=== PATIENT | female | born 1950 | race Caucasian/White ===

== ENCOUNTER → 2018-02-17 | Outpatient (CLI) | payer MEDICARE ==
[~2018-02-17] MED LIST: BP MED PO; CLONAZEPAM0.5 MG PO; LISINOPRIL-HCT1 EAC2 PO; MELOXICAM15 MG PO; OXYBUTYNIN CHLOR5 MG PO; PANTOPRAZOLE SO40 MG PO; PREDNISONE; PROBIOTIC DIGE1 EACH PO; ULTRAM50 MG PO; [UNRECOGNIZED DRUG - OTHER]; [UNRECOGNIZED DRUG - OTHER] PO
--- NOTE | 2018-02-17 15:06 | Diagnostic Imaging Report ---
Exam: Bone mineral density study. History: MENOPAUSE, reported history of prior fracture of spine, hips or forearm and loss of height Comparison: None Discussion: Evaluation of the left hip and lumbar spine was performed. The study is technically adequate. The patient's fracture risk is compared to an age-matched control. The patient denies prior surgery/fracture of the spine, hips or forearm. Left hip femoral neck bone mineral density: 0.8 g/cm2, T-score is -0.6, Z-score is 1. Left hip total bone mineral density: 0.9 g/cm2, T-score is -0.5, Z-score is 0.9. Lumbar spine total bone mineral density: 1.3 g/cm2, T-score is 1.9, Z-score is 3.9. Impression: Bone mineralization by WHO Classification is normal, the fracture risk is not increased. Signed by: Dr. Arnel Yarbrough D.O., M.M.M. on 02/17/2018 3:03 PM
--- NOTE | 2018-02-21 08:37 | Diagnostic Imaging Report ---
#[id number] - MGSCRBIL #BILATERAL DIGITAL SCREENING MAMMOGRAM WITH CAD: 02/17/2018 CLINICAL: Routine screening. Comparison is made to exam dated: 02/04/2017 mammogram - [facility] [place]. Current study contains 5 films. The tissue of both breasts is predominantly fatty. Current study was also evaluated with a Computer Aided Detection (CAD) system. There are benign scattered calcifications in both breasts. There also are benign intramammary nodes in the right breast. No significant masses, calcifications, or other findings are seen in either breast. There has been no significant interval change. IMPRESSION: BENIGN There is no mammographic evidence of malignancy. A 1 year screening mammogram is recommended. The patient will be notified by letter of the results. Marcial malone/bolivar:02/18/2018 15:12:02 Work Order Detailer: Juanita HEARD(R)(Araseli), [facility] [place] letter sent: Compared to Prior B9 Mammogram BI-RADS: 2 Benign
== END ==
LOC: MAMMO 13:50
DX: Z12.31 Encounter for screening mammogram for malignant neoplasm of breast (principal); Z78.0 Asymptomatic menopausal state
CPT/HCPCS: 77067; 77080

== ENCOUNTER → 2018-03-14 | Outpatient (CLI) | payer MEDICARE | LOC: CARD 13:56 | DX: I73.9 Peripheral vascular disease, unspecified (principal) | CPT/HCPCS: 93925 ==

== ENCOUNTER → 2020-02-23 | Outpatient (CLI) | payer MEDICARE | LOC: MAMMO 12:37 | DX: Z12.31 Encounter for screening mammogram for malignant neoplasm of breast (principal); M89.9 Disorder of bone, unspecified | CPT/HCPCS: 77067; 77080 ==

== ENCOUNTER 2020-11-07 17:58 | Emergency (ER) | payer MEDICARE, OTHER ==
[~2020-11-07] VITALS: Ht 165.1 cm; Wt 108.9 kg
[2020-11-07] MEDS ORDERED: LIDOCAINE 1% W/EPINEPHRINE 20 ML VIAL ONE (18:37)
[2020-11-07] MEDS ORDERED: TRANEXAMIC ACID 1,000 MG/10 ML ML ONE (18:37)
== END 2020-11-07 19:15 | disposition home or self-care (01) ==
LOC: ER 19:10
DX: S91.012A Laceration without foreign body, left ankle, initial encounter (principal); W22.8XXA Striking against or struck by other objects, initial encounter; Y92.89 Other specified places as the place of occurrence of the external cause; Z95.810 Presence of automatic (implantable) cardiac defibrillator
CPT/HCPCS: 99283

== ENCOUNTER → 2021-02-10 | Outpatient (CLI) | payer MEDICARE | LOC: US 11:56 | PROVIDERS: ATTEND Internal Medicine Nephrology | DX: N18.30 Chronic kidney disease, stage 3 unspecified (principal) | CPT/HCPCS: 76770; 76857 ==

== ENCOUNTER 2021-10-31 14:08 | Inpatient (IN) | payer MEDICARE ==
[~2021-10-31] VITALS: Ht 165.1 cm; Wt 108.9 kg
[2021-10-31] MEDS ORDERED: SODIUM CHLORIDE 0.9% 1000ML 1,000 ML IV STA (14:48)
[2021-10-31 14:59] LABS: BASOPHILS # (AUTO) 0.1 (0.0-0.1); BASOPHILS % 0.2 % (0.0-1.0); HEMATOCRIT 43.1 % (34.2-44.1); HEMOGLOBIN 14.8 g/dL (12.0-16.0); LYMPHOCYTES # (AUTO) 1.2 (1.0-3.2); LYMPHOCYTES % 4.1 % (18.0-39.1); MEAN CORPUSCULAR HEMOGLOBIN 31.2 pg (28-32); MEAN CORPUSCULAR HGB CONC 34.3 g/dL (31-35); MEAN CORPUSCULAR VOLUME 90.9 fL (81-99); MONOCYTES # (AUTO) 1.8 (0.2-0.8); MONOCYTES % 6.4 % (4.4-11.3); NEUTROPHILS # (AUTO) 25.2 (2.1-6.9); NEUTROPHILS % 88.5 % (38.7-80.0); PLATELET COUNT 288 x10e3/uL (140-360); RED BLOOD COUNT 4.74 x10e6/uL (3.6-5.1); RED CELL DISTRIBUTION WIDTH 12.7 % (11.7-14.4)
[2021-10-31 15:09] LABS: ALBUMIN/GLOBULIN RATIO 0.9 (0.8-2.0); ANION GAP 18.5 mmol/L (8-16); CALCIUM 9.4 mg/dL (8.4-10.2); CREATININE, SERUM 1.09 mg/dL (0.57-1.11); POTASSIUM 3.5 mmol/L (3.5-5.1)
[2021-10-31] MEDS: ONDANSETRON HCL INJ 2MG/ML 2ML 2 MG/ML VIAL IV PRN ×2 (15:20→20:00)
[2021-10-31] MEDS ORDERED: IOPAMIDOL 370 MG/ML 100 ML INFUS..BTL INJ ONE (15:35)
[2021-10-31] MEDS ORDERED: FENTANYL CITRATE/PF 100MCG/2 ML INJ IV ONE (15:45)
[2021-10-31 16:21] LABS: CLARITY,URINE SL CLOUDY (CLEAR); COLOR,URINE STRAW (YELLOW); KETONES,URINE NEGATIVE (NEGATIVE); LEUKOCYTE ESTERASE ,URINE NEGATIVE (NEGATIVE); NITRITE,URINE NEGATIVE (NEGATIVE); PROTEIN,URINE DIPSTICK NEGATIVE (NEGATIVE); URINE UROBILINOGEN 1 mg/dL (0.2 - 1)
[2021-10-31 16:35] LABS: BACTERIA,URINE RARE /HPF; EPITHELIAL CELLS,URINE FEW /LPF
[2021-10-31] MEDS ORDERED: SODIUM CHLORIDE 0.9% 1000ML 1,000 ML IV SCH (16:45)
[2021-10-31] MEDS ORDERED: ONDANSETRON HCL INJ 2MG/ML 2ML 2 MG/ML VIAL IV PRN (16:45)
[2021-10-31] MEDS ORDERED: Morphine 4mg INJECTION 4 MG/ML INJ IV PRN (16:45)
[2021-10-31] MEDS ORDERED: LACTATED RINGER'S 1,000 ML INJ ONE (17:00)
[2021-10-31] MEDS ORDERED: METRONIDAZOLE 500MG/NS 100ML 100 ML IV SCH (17:00)
[2021-10-31] MEDS ORDERED: LACTATED RINGER'S 1,000 ML INJ SCH (17:00)
[2021-10-31] MEDS: HYDROMORPHONE 1MG/1ML INJ IV PRN ×3 (17:58→21:10)
[2021-10-31] MEDS: SODIUM CHLORIDE 0.9% 1000ML 1,000 ML IV SCH (18:40)
[2021-10-31 20:30] VITALS: BP 163/71
[2021-10-31 21:00] VITALS: BP 163/71
[2021-10-31] MEDS ORDERED: HYDROCHLOROTHIA25 MG PO (21:25)
[2021-10-31] MEDS ORDERED: METOPROLOL SUCC25 MG PO (21:25)
[2021-10-31] MEDS ORDERED: LISINOPRIL10 MG PO (21:25)
[2021-10-31] MEDS ORDERED: SODIUM CHLORIDE 0.9% 1000ML 1,000 ML IV ONE ×2 (21:30)
[2021-11-01] VITALS (8 sets, daily range): BP systolic 138–169; BP diastolic 61–84
[2021-11-01] MEDS ORDERED: ACETAMINOPHEN 1000 MG/100 ML IV PRN
[2021-11-01] MEDS: METRONIDAZOLE 500MG/NS 100ML 100 ML IV SCH ×4 (00:13→16:31)
[2021-11-01] MEDS: SODIUM CHLORIDE 0.9% 1000ML 1,000 ML IV SCH (00:13)
[2021-11-01] MEDS: LACTATED RINGER'S 1,000 ML INJ SCH ×5 (00:36→21:17)
[2021-11-01] MEDS: HYDROMORPHONE 1MG/1ML INJ IV PRN ×6 (01:39→21:18)
[2021-11-01] MEDS: ONDANSETRON HCL INJ 2MG/ML 2ML 2 MG/ML VIAL IV PRN ×5 (01:39→21:17)
[2021-11-01 05:52] LABS: BASOPHILS # (AUTO) 0.1 (0.0-0.1); BASOPHILS % 0.3 % (0.0-1.0); EOSINOPHILS % 0.1 % (0.0-6.0); HEMATOCRIT 37.1 % (34.2-44.1); HEMOGLOBIN 12.5 g/dL (12.0-16.0); LYMPHOCYTES # (AUTO) 1.6 (1.0-3.2); LYMPHOCYTES % 8.2 % (18.0-39.1); MEAN CORPUSCULAR HEMOGLOBIN 30.5 pg (28-32); MEAN CORPUSCULAR HGB CONC 33.7 g/dL (31-35); MEAN CORPUSCULAR VOLUME 90.5 fL (81-99); MONOCYTES # (AUTO) 1.2 (0.2-0.8); MONOCYTES % 6.3 % (4.4-11.3); NEUTROPHILS % 84.3 % (38.7-80.0); PLATELET COUNT 194 x10e3/uL (140-360); RED CELL DISTRIBUTION WIDTH 13.2 % (11.7-14.4)
[2021-11-01 06:27] LABS: ALBUMIN/GLOBULIN RATIO 0.9 (0.8-2.0); ANION GAP 13.4 mmol/L (8-16); CALCIUM 7.5 mg/dL (8.4-10.2); CREATININE, SERUM 0.88 mg/dL (0.57-1.11); POTASSIUM 4.4 mmol/L (3.5-5.1)
[2021-11-01 06:59] LABS: AMYLASE 1259 U/L (25-125)
[2021-11-01 07:33] LABS: LIPASE 1863 U/L (8-78)
[2021-11-01] MEDS ORDERED: DIPHENHYDRAMINE HCL INJ 50 MG/ML VIAL IV ONE ×2 (17:00→21:45)
[2021-11-01] MEDS ORDERED: MAGNESIUM HYDROXIDE 30 ML UDC PO ONE (17:30)
[2021-11-01] MEDS ORDERED: BISACODYL 5 MG TAB EC PO ONE (17:30)
[2021-11-01] MEDS ORDERED: METHYLPREDNISOLONE SOD SUCC 125 MG/2ML VIAL IV ONE (21:45)
[2021-11-02] VITALS (7 sets, daily range): BP systolic 143–171; BP diastolic 66–88
[2021-11-02] MEDS: METRONIDAZOLE 500MG/NS 100ML 100 ML IV SCH ×5 (00:45→23:30)
[2021-11-02] MEDS: LACTATED RINGER'S 1,000 ML INJ SCH ×3 (02:42→16:54)
[2021-11-02 06:25] LABS: BASOPHILS # (AUTO) 0.1 (0.0-0.1); BASOPHILS % 0.3 % (0.0-1.0); HEMATOCRIT 40.2 % (34.2-44.1); HEMOGLOBIN 13.9 g/dL (12.0-16.0); LYMPHOCYTES # (AUTO) 0.7 (1.0-3.2); LYMPHOCYTES % 3.1 % (18.0-39.1); MEAN CORPUSCULAR HEMOGLOBIN 31.2 pg (28-32); MEAN CORPUSCULAR HGB CONC 34.6 g/dL (31-35); MEAN CORPUSCULAR VOLUME 90.1 fL (81-99); MONOCYTES # (AUTO) 0.5 (0.2-0.8); MONOCYTES % 1.9 % (4.4-11.3); NEUTROPHILS # (AUTO) 22.6 (2.1-6.9); NEUTROPHILS % 93.5 % (38.7-80.0); PLATELET COUNT 175 x10e3/uL (140-360); RED BLOOD COUNT 4.46 x10e6/uL (3.6-5.1); RED CELL DISTRIBUTION WIDTH 13.4 % (11.7-14.4)
[2021-11-02 06:53] LABS: ALBUMIN 2.7 g/dL (3.5-5.0); ALBUMIN/GLOBULIN RATIO 0.7 (0.8-2.0); ANION GAP 12.2 mmol/L (8-16); CALCIUM 7.9 mg/dL (8.4-10.2); CREATININE, SERUM 0.8 mg/dL (0.57-1.11); POTASSIUM 4.2 mmol/L (3.5-5.1)
[2021-11-02] MEDS ORDERED: MAGNESIUM HYDROXIDE 30 ML UDC PO ONE (07:30)
[2021-11-02] MEDS ORDERED: BISACODYL 5 MG TAB EC PO ONE (07:30)
[2021-11-02] MEDS: CIPROFLOXACIN 400 MG/D5W 200ML 200 ML IV SCH ×3 (08:00→22:15)
[2021-11-02 08:12] LABS: NEUTROPHILS % (MANUAL) 100 % (40-74)
[2021-11-02 08:14] LABS: PLATELET ESTIMATE ADEQUATE; PLATELET MORPHOLOGY COMMENT NORMAL; RBC MORPHOLOGY COMMENT NORMAL
[2021-11-02] MEDS ORDERED: METOPROLOL SUCCINATE 25 MG TAB XL PO SCH (09:00)
[2021-11-02] MEDS ORDERED: LISINOPRIL 10 MG TAB PO SCH (09:00)
[2021-11-02] MEDS: PANTOPRAZOLE SOD 40 MG TABEC PO SCH (09:09)
[2021-11-02] MEDS: OXYBUTYNIN CHLORIDE 5 MG TAB PO SCH ×3 (09:09→21:00)
[2021-11-02] MEDS ORDERED: BISACODYL 5 MG TAB EC PO PRN (17:00)
[2021-11-02] MEDS ORDERED: MAGNESIUM HYDROXIDE 30 ML UDC PO PRN (17:00)
[2021-11-02] MEDS: DIPHENHYDRAMINE HCL INJ 50 MG/ML VIAL IV PRN (19:40)
[2021-11-02] MEDS ORDERED: METHYLPREDNISOLONE SOD SUCC 125 MG/2ML VIAL IV ONE (22:00)
[2021-11-03] VITALS (9 sets, daily range): BP systolic 145–173; BP diastolic 66–93
[2021-11-03] MEDS ORDERED: LASIX10 MG/ML PO (00:14)
[2021-11-03] MEDS ORDERED: CLONIDINE HCL0.1 MG PO (00:14)
[2021-11-03] MEDS ORDERED: LOSARTAN POTASS25 MG PO (00:14)
[2021-11-03] MEDS ORDERED: MELATONIN 5 MG TABLET PO PRN (01:00)
[2021-11-03] MEDS ORDERED: TRAMADOL HCL 50 MG TAB PO PRN (01:00)
[2021-11-03] MEDS: HYDROMORPHONE 1MG/1ML INJ IV PRN (01:25)
[2021-11-03] MEDS: DIPHENHYDRAMINE HCL INJ 50 MG/ML VIAL IV PRN (01:45)
[2021-11-03 05:53] LABS: BASOPHILS # (AUTO) 0.1 (0.0-0.1); BASOPHILS % 0.3 % (0.0-1.0); HEMATOCRIT 37.4 % (34.2-44.1); HEMOGLOBIN 12.9 g/dL (12.0-16.0); LYMPHOCYTES # (AUTO) 0.8 (1.0-3.2); MEAN CORPUSCULAR HEMOGLOBIN 30.9 pg (28-32); MEAN CORPUSCULAR HGB CONC 34.5 g/dL (31-35); MEAN CORPUSCULAR VOLUME 89.7 fL (81-99); MONOCYTES # (AUTO) 0.5 (0.2-0.8); MONOCYTES % 2.6 % (4.4-11.3); NEUTROPHILS # (AUTO) 18.3 (2.1-6.9); NEUTROPHILS % 91.7 % (38.7-80.0); PLATELET COUNT 219 x10e3/uL (140-360); RED BLOOD COUNT 4.17 x10e6/uL (3.6-5.1); RED CELL DISTRIBUTION WIDTH 13.2 % (11.7-14.4)
[2021-11-03] MEDS: METRONIDAZOLE 500MG/NS 100ML 100 ML IV SCH ×2 (06:00→13:47)
[2021-11-03 06:15] LABS: ALBUMIN 2.8 g/dL (3.5-5.0); ALBUMIN/GLOBULIN RATIO 0.8 (0.8-2.0); ANION GAP 12.9 mmol/L (8-16); CALCIUM 7.8 mg/dL (8.4-10.2); CREATININE, SERUM 0.84 mg/dL (0.57-1.11); POTASSIUM 3.9 mmol/L (3.5-5.1)
[2021-11-03] MEDS: LACTATED RINGER'S 1,000 ML INJ SCH ×2 (06:41→20:10)
[2021-11-03] MEDS: OLMESARTAN 20 MG TAB PO SCH (09:16)
[2021-11-03] MEDS: PANTOPRAZOLE SOD 40 MG TABEC PO SCH (09:17)
[2021-11-03] MEDS: CIPROFLOXACIN 400 MG/D5W 200ML 200 ML IV SCH ×2 (09:17→20:56)
[2021-11-04] VITALS: BP 140/82
[2021-11-04] MEDS: METRONIDAZOLE 500MG/NS 100ML 100 ML IV SCH ×2 (00:04→06:18)
[2021-11-04 04:00] VITALS: BP 160/86
[2021-11-04 05:01] LABS: BASOPHILS % 0.2 % (0.0-1.0); HEMATOCRIT 38.6 % (34.2-44.1); LYMPHOCYTES # (AUTO) 1.6 (1.0-3.2); LYMPHOCYTES % 7.8 % (18.0-39.1); MEAN CORPUSCULAR HEMOGLOBIN 30.5 pg (28-32); MEAN CORPUSCULAR HGB CONC 33.7 g/dL (31-35); MEAN CORPUSCULAR VOLUME 90.6 fL (81-99); MONOCYTES # (AUTO) 1.8 (0.2-0.8); MONOCYTES % 8.9 % (4.4-11.3); NEUTROPHILS # (AUTO) 16.9 (2.1-6.9); NEUTROPHILS % 81.9 % (38.7-80.0); PLATELET COUNT 236 x10e3/uL (140-360); RED BLOOD COUNT 4.26 x10e6/uL (3.6-5.1); RED CELL DISTRIBUTION WIDTH 13.2 % (11.7-14.4)
[2021-11-04 05:20] LABS: ALBUMIN/GLOBULIN RATIO 0.9 (0.8-2.0); ANION GAP 11.9 mmol/L (8-16); CALCIUM 8.1 mg/dL (8.4-10.2); CREATININE, SERUM 0.86 mg/dL (0.57-1.11); POTASSIUM 3.9 mmol/L (3.5-5.1)
[2021-11-04 08:06] VITALS: BP 166/85
[2021-11-04] MEDS: OLMESARTAN 20 MG TAB PO SCH (08:17)
[2021-11-04] MEDS: PANTOPRAZOLE SOD 40 MG TABEC PO SCH (08:17)
[2021-11-04] MEDS: CIPROFLOXACIN 400 MG/D5W 200ML 200 ML IV SCH (08:17)
[2021-11-04] MEDS ORDERED: CIPRO500 MG PO (10:34)
[2021-11-04] MEDS ORDERED: FLAGYL375 MG PO (10:34)
== END 2021-11-04 11:15 | disposition home or self-care (01) | DRG 871 ==
LOC: ER 14:11 → ERHOLD 20:13 → MED/SURG2 20:14
PROVIDERS: ADMIT Internal Medicine
DX: A41.9 Sepsis, unspecified organism (principal); K85.10 Biliary acute pancreatitis without necrosis or infection; K85.90 Acute pancreatitis without necrosis or infection, unspecified; Z68.41 Body mass index [BMI] 40.0-44.9, adult; K76.0 Fatty (change of) liver, not elsewhere classified; F41.9 Anxiety disorder, unspecified; Z87.11 Personal history of peptic ulcer disease; R22.0 Localized swelling, mass and lump, head; T36.1X5A Adverse effect of cephalosporins and other beta-lactam antibiotics, initial encounter; K52.9 Noninfective gastroenteritis and colitis, unspecified; R63.4 Abnormal weight loss; Z20.822 Contact with and (suspected) exposure to COVID-19; I89.0 Lymphedema, not elsewhere classified; N32.81 Overactive bladder; M17.11 Unilateral primary osteoarthritis, right knee; I11.9 Hypertensive heart disease without heart failure; E66.01 Morbid (severe) obesity due to excess calories; E27.8 Other specified disorders of adrenal gland; Z86.16 Personal history of COVID-19; Z79.899 Other long term (current) drug therapy; Z95.810 Presence of automatic (implantable) cardiac defibrillator
CPT/HCPCS: 0223U; 36415; 71045; 74177; 76705; 80053; 81001; 82150; 83605; 83690; 84478; 84484; 85025; 86301; 93005; 94799; 96361; 99284; J0696; J1170; J1200; J2270; J2405; J2930; J3010; J7030; J7121; Q9967

== ENCOUNTER → 2021-12-02 | Outpatient (CLI) | payer MEDICARE ==
[~2021-12-02] MED LIST changes: +CIPRO500 MG PO; +CLONIDINE HCL0.1 MG PO; +FENTANYL CITRATE/PF 100MCG/2 ML INJ ONE; +FLAGYL375 MG PO; +HYDROCHLOROTHIA25 MG PO; +LABETALOL HCL 20 ML ONE; +LASIX10 MG/ML PO; +LISINOPRIL10 MG PO; +LOSARTAN POTASS25 MG PO; +METOPROLOL SUCC25 MG PO; +MIDAZOLAM HCL 2 MG/2 ML VIAL ONE; +SODIUM CHLORIDE 0.9% 250ML 250 ML ONE
[2021-12-02 12:09] LABS: HEMOGLOBIN 12.3 g/dL (12.0-16.0)
[2021-12-02 12:16] LABS: INR 0.88; PARTIAL THROMBOPLASTIN TIME 27.5 seconds (23.8-35.5); PROTHROMBIN TIME 12.8 seconds (11.9-14.5)
== END ==
LOC: CT 11:03
DX: E27.8 Other specified disorders of adrenal gland (principal); Z20.822 Contact with and (suspected) exposure to COVID-19
CPT/HCPCS: 0223U; 36415 ×2; 71045; 77012; 85014; 85049; 85610; 85730; 88304; J2250; J3010; J3490; J7050; 99152; 99153

== ENCOUNTER → 2022-07-08 | Outpatient (CLI) | payer MEDICARE ==
[~2022-07-08] MED LIST changes: -FENTANYL CITRATE/PF 100MCG/2 ML INJ ONE; -LABETALOL HCL 20 ML ONE; -MIDAZOLAM HCL 2 MG/2 ML VIAL ONE; -SODIUM CHLORIDE 0.9% 250ML 250 ML ONE
== END ==
LOC: RAD 11:47
PROVIDERS: ATTEND Internal Medicine
DX: M25.562 Pain in left knee (principal); M25.561 Pain in right knee

== ENCOUNTER 2024-01-19 15:02 | Inpatient (IN) | payer MEDICARE ==
[~2024-01-19] VITALS: Ht 165.1 cm; Wt 116.7 kg
[2024-01-19 15:05] VITALS: TEMP 98
[2024-01-19] MEDS ORDERED: SODIUM CHLORIDE FLUSH 10 ML SYR IV PRN (15:45)
[2024-01-19 17:10] LABS: BASOPHILS % 0.3 % (0.0-1.0); EOSINOPHILS # (AUTO) 0.1 (0.0-0.4); EOSINOPHILS % 0.3 % (0.0-6.0); HEMATOCRIT 40.7 % (34.2-44.1); HEMOGLOBIN 13.5 g/dL (12.0-16.0); LYMPHOCYTES # (AUTO) 1.2 (1.0-3.2); LYMPHOCYTES % 7.5 % (18.0-39.1); MEAN CORPUSCULAR HEMOGLOBIN 31.6 pg (28-32); MEAN CORPUSCULAR HGB CONC 33.2 g/dL (31-35); MEAN CORPUSCULAR VOLUME 95.3 fL (81-99); MONOCYTES % 6.1 % (4.4-11.3); NEUTROPHILS # (AUTO) 13.2 (2.1-6.9); NEUTROPHILS % 85.3 % (38.7-80.0); PLATELET COUNT 164 x10e3/uL (140-360); RED BLOOD COUNT 4.27 x10e6/uL (3.6-5.1); RED CELL DISTRIBUTION WIDTH 12.7 % (11.7-14.4); WHITE BLOOD COUNT 15.46 x10e3/uL (4.8-10.8)
[2024-01-19 17:14] LABS: BILIRUBIN,URINE NEGATIVE (NEGATIVE); CLARITY,URINE CLEAR (CLEAR); COLOR,URINE YELLOW (YELLOW); GLUCOSE, URINE NEGATIVE (NEGATIVE); KETONES,URINE NEGATIVE (NEGATIVE); LEUKOCYTE ESTERASE ,URINE NEGATIVE (NEGATIVE); NITRITE,URINE NEGATIVE (NEGATIVE); PH,URINE 7 (5 - 7); PROTEIN,URINE DIPSTICK NEGATIVE (NEGATIVE); URINE UROBILINOGEN 0.2 mg/dL (0.2 - 1)
[2024-01-19 17:25] LABS: ALANINE AMINOTRANSFERASE 37 IU/L (0-55); ALBUMIN 4.1 g/dL (3.5-5.0); ALBUMIN/GLOBULIN RATIO 1.2 (0.8-2.0); ALKALINE PHOSPHATASE 84 IU/L (40-150); BLOOD UREA NITROGEN 23 mg/dL (7-26); BUN/CREATININE RATIO 23 (6-25); CARBON DIOXIDE 26 mmol/L (22-29); CHLORIDE 101 mmol/L (98-107); CREATININE, SERUM 1.02 mg/dL (0.57-1.11); EST GLOMERULAR FILTRATION RATE 58 ML/MIN (>=60); GLUCOSE 111 mg/dL (74-118); SODIUM 139 mmol/L (136-145); TOTAL PROTEIN 7.4 g/dL (6.5-8.1)
[2024-01-19 17:28] LABS: BACTERIA,URINE MANY /HPF; EPITHELIAL CELLS,URINE FEW /LPF; RBC,URINE 0-5 /HPF (0-5)
[2024-01-19] MEDS ORDERED: IOPAMIDOL 370 MG/ML 100 ML INFUS..BTL INJ ONE (17:48)
[2024-01-19 18:04] LABS: LIPASE > 1200 U/L (8-78)
[2024-01-19 20:22] VITALS: PULSE 70; RESP 16
[2024-01-19] MEDS ORDERED: PIPERACILLIN/TAZOBACTAM 3.375 GM VIAL ONE (20:34)
[2024-01-19] MEDS: SODIUM CHLORIDE 0.9% 1000ML 1,000 ML IV SCH (20:34)
[2024-01-19] MEDS ORDERED: HYDRALAZINE HCL 20 MG/ML VIAL IV PRN (20:45)
[2024-01-19] MEDS ORDERED: TRAMADOL HCL 50 MG TAB PO PRN (21:00)
[2024-01-19 21:48] VITALS: BP 157/70; PULSE 66; RESP 18; TEMP 98.2; O2SAT 100
[2024-01-19 22:00] VITALS: BP 157/70; PULSE 66; RESP 18; TEMP 98.2; O2SAT 100
[2024-01-19] MEDS: GABAPENTIN 300 MG CAP PO SCH (22:38)
[2024-01-19] MEDS: CRESTOR 10MG PO SCH (22:38)
[2024-01-19] MEDS: MELATONIN 3 MG TAB PO SCH (22:38)
[2024-01-19] MEDS: Morphine 4mg INJECTION 4 MG/ML INJ IV PRN (23:11)
[2024-01-19] MEDS: ONDANSETRON HCL INJ 2MG/ML 2ML 2 MG/ML VIAL IV PRN (23:11)
[2024-01-20] VITALS (9 sets, daily range): BP systolic 132–166; BP diastolic 55–80; PULSE 62–66; RESP 17–20; TEMP 97–98.2; O2SAT 97–100
[2024-01-20 06:02] LABS: BASOPHILS % 0.3 % (0.0-1.0); EOSINOPHILS # (AUTO) 0.3 (0.0-0.4); EOSINOPHILS % 2.5 % (0.0-6.0); HEMATOCRIT 41.4 % (34.2-44.1); HEMOGLOBIN 13.4 g/dL (12.0-16.0); LYMPHOCYTES # (AUTO) 2.1 (1.0-3.2); LYMPHOCYTES % 18.7 % (18.0-39.1); MEAN CORPUSCULAR HEMOGLOBIN 31.5 pg (28-32); MEAN CORPUSCULAR HGB CONC 32.4 g/dL (31-35); MEAN CORPUSCULAR VOLUME 97.4 fL (81-99); MONOCYTES # (AUTO) 0.7 (0.2-0.8); MONOCYTES % 6.7 % (4.4-11.3); NEUTROPHILS # (AUTO) 7.9 (2.1-6.9); NEUTROPHILS % 71.5 % (38.7-80.0); PLATELET COUNT 156 x10e3/uL (140-360); RED BLOOD COUNT 4.25 x10e6/uL (3.6-5.1); RED CELL DISTRIBUTION WIDTH 12.6 % (11.7-14.4); WHITE BLOOD COUNT 10.99 x10e3/uL (4.8-10.8)
[2024-01-20 06:25] LABS: ALBUMIN 3.9 g/dL (3.5-5.0); ALBUMIN/GLOBULIN RATIO 1.2 (0.8-2.0); BILIRUBIN,TOTAL 1.2 mg/dL (0.2-1.2); CALCIUM 9.6 mg/dL (8.4-10.2); CHOL/HDL RATIO 2.8 (3.0-3.6); CREATININE, SERUM 0.95 mg/dL (0.57-1.11); TOTAL PROTEIN 7.2 g/dL (6.5-8.1)
[2024-01-20 06:47] LABS: TROPONIN I 0.032 ng/mL (0-0.300)
[2024-01-20] MEDS: SERTRALINE HCL 50 MG TAB PO SCH (09:47)
[2024-01-20] MEDS: CLONIDINE HCL 0.1 MG TAB PO SCH (09:48)
[2024-01-20] MEDS: POLYETHYLENE GLYCOL 3350 17 GM PACK PO SCH (09:48)
[2024-01-20] MEDS: PANTOPRAZOLE SOD 40 MG TABEC PO SCH (09:48)
[2024-01-20] MEDS: LOSARTAN POTASSIUM 25 MG TAB PO SCH (09:48)
[2024-01-20 15:33] LABS: TROPONIN I 0.03 ng/mL (0-0.300)
[2024-01-20] MEDS: ACETAMINOPHEN 325 MG TAB PO PRN (19:55)
[2024-01-21] VITALS (7 sets, daily range): BP systolic 121–178; BP diastolic 53–93; PULSE 60–70; RESP 18–20; TEMP 97–98.3; O2SAT 97–100
[2024-01-21 06:32] LABS: TROPONIN I 0.027 ng/mL (0-0.300)
[2024-01-21 08:18] LABS: BASOPHILS % 0.5 % (0.0-1.0); EOSINOPHILS # (AUTO) 0.3 (0.0-0.4); EOSINOPHILS % 3.6 % (0.0-6.0); HEMATOCRIT 37.4 % (34.2-44.1); HEMOGLOBIN 12.3 g/dL (12.0-16.0); LYMPHOCYTES % 25.9 % (18.0-39.1); MEAN CORPUSCULAR HEMOGLOBIN 31.6 pg (28-32); MEAN CORPUSCULAR HGB CONC 32.9 g/dL (31-35); MEAN CORPUSCULAR VOLUME 96.1 fL (81-99); MONOCYTES # (AUTO) 0.6 (0.2-0.8); MONOCYTES % 8.2 % (4.4-11.3); NEUTROPHILS # (AUTO) 4.7 (2.1-6.9); NEUTROPHILS % 61.5 % (38.7-80.0); PLATELET COUNT 138 x10e3/uL (140-360); RED BLOOD COUNT 3.89 x10e6/uL (3.6-5.1); RED CELL DISTRIBUTION WIDTH 12.7 % (11.7-14.4)
== END 2024-01-21 19:50 | disposition home or self-care (01) | DRG 439 ==
LOC: ER 15:44 → ERHOLD 20:16 → MED/SURG2 21:48
PROVIDERS: ADMIT Internal Medicine; ATTEND Internal Medicine
DX: K85.10 Biliary acute pancreatitis without necrosis or infection (principal); I13.0 Hypertensive heart and chronic kidney disease with heart failure and stage 1 through stage 4 chronic kidney disease, or unspecified chronic kidney disease; I44.2 Atrioventricular block, complete; I42.9 Cardiomyopathy, unspecified; I50.22 Chronic systolic (congestive) heart failure; E66.01 Morbid (severe) obesity due to excess calories; Z68.41 Body mass index [BMI] 40.0-44.9, adult; E27.8 Other specified disorders of adrenal gland; G47.33 Obstructive sleep apnea (adult) (pediatric); G89.4 Chronic pain syndrome; D47.2 Monoclonal gammopathy; I73.9 Peripheral vascular disease, unspecified; G62.9 Polyneuropathy, unspecified; F32.4 Major depressive disorder, single episode, in partial remission; N18.31 Chronic kidney disease, stage 3a; I89.0 Lymphedema, not elsewhere classified; K80.20 Calculus of gallbladder without cholecystitis without obstruction; K43.9 Ventral hernia without obstruction or gangrene; K21.9 Gastro-esophageal reflux disease without esophagitis; R26.89 Other abnormalities of gait and mobility; Z95.810 Presence of automatic (implantable) cardiac defibrillator; Z98.1 Arthrodesis status; Z88.1 Allergy status to other antibiotic agents
CPT/HCPCS: 36415; 74177; 76700; 80053; 80061; 81001; 82550; 83690; 84484; 85025; 86301; 93005; 93306; 99252; 99284; J2270; J2405; J2543; J7030; Q9967

== ENCOUNTER → 2024-02-16 | Outpatient (REF) | payer MEDICARE | LOC: US 11:24 | PROVIDERS: ATTEND Internal Medicine | DX: K80.20 Calculus of gallbladder without cholecystitis without obstruction (principal) | CPT/HCPCS: 76705 ==